=== PATIENT | female | born 1955 | race Caucasian/White ===

== ENCOUNTER 2016-09-10 20:04 | Inpatient (IN) ==
[2016-09-10 21:11] LABS: URINE MICRO REVIEW NEEDED? NO; URINE SOURCE CLEAN CATCH
[2016-09-10 21:11] LABS: MANUAL DIFF NEEDED? NO
[2016-09-10 21:17] LABS: BASO% 0.1 % (0.0-0.8); EOS# 0.06 X1000 (0.0-0.7); EOS% 0.8 % (0.0-10.0); HEMATOCRIT 48.2 % (37.0-47.0); HEMOGLOBIN 16.7 g/dL (12.0-16.0); LYMPH# 1.44 X1000 (1.2-3.4); LYMPH% 18.7 % (20.5-51.1); MCH 32.2 PG (27-31); MCHC 34.6 g/dL (33-37); MCV 93.1 FL (81-99); MONO# 0.47 X1000 (0.11-0.59); MONO% 6.1 % (1.7-9.3); MPV 10.6 FL (7.4-10.4); NEUT% 74.3 % (42.2-75.2); PLT 185 X1000 (130-400); RBC 5.18 XMIL (4.2-5.4)
[2016-09-10 21:17] LABS: BILIRUBIN URINE NEGATIVE (NEGATIVE); BLOOD URINE NEGATIVE (NEGATIVE); COLOR YELLOW; GLUCOSE URINE NEGATIVE (NEGATIVE); LEUKOCYTES URINE SMALL (NEGATIVE); NITRITE URINE NEGATIVE (NEGATIVE); PROTEIN URINE TRACE mg/dL (NEGATIVE); SP GRAVITY URINE 1.016; TURBIDITY URINE CLEAR (CLEAR); UR EPITHELIAL CELLS <10 /HPF (<10); URINE BACTERIA NEGATIVE /HPF; URINE CULTURE NEEDED? YES; URINE RBC <10 /HPF (<10); URINE WBC <10 /HPF (<10); UROBILINOGEN URINE NORMAL (NORMAL)
[2016-09-10 21:49] LABS: UR AMPHETAMINES QUAL NONE DETECTED (NONE DETECT); UR BARBITUATES QUAL NONE DETECTED (NONE DETECT); UR BENZODIAZEPIN QUAL NONE DETECTED (NONE DETECT); UR CANNABINOIDS QUAL NONE DETECTED (NONE DETECT); UR COCAINE QUAL NONE DETECTED (NONE DETECT); UR METHADONE QUAL NONE DETECTED (NONE DETECT); UR OPIATES QUAL NONE DETECTED (NONE DETECT); UR OXYCODONE QUAL NONE DETECTED (NONE DETECT); UR PCP QUAL NONE DETECTED (NONE DETECT)
[2016-09-10 21:50] LABS: AGAP 15; ALBUMIN 4.4 g/dL (3.5-5.0); ALKALINE PHOSPHATASE 85 U/L (32-104); BUN 10 mg/dL (8-22); CALCIUM 10.1 mg/dL (8.8-10.2); CHLORIDE 94 mmol/L (98-107); COSMO 269; GOT 22 U/L (10-30); GPT 12 U/L (10-36); POTASSIUM 3.9 mmol/L (3.5-5.1); SODIUM 135 mmol/L (136-145); TCO2 26 mmol/L (25-35); TOTAL BILIRUBIN 0.34 mg/dL (0.20-1.00); TOTAL PROTEIN 7.4 g/dL (6.3-8.3)
[2016-09-10] MEDS ORDERED: ATIVAN ONE (22:44)
[2016-09-10] MEDS ORDERED: STERILE WATER INJ. ONE (22:53)
[2016-09-10] MEDS ORDERED: GEODON ONE (22:53)
[2016-09-10] MEDS ORDERED: SODIUM CHLORIDE 0.9% 0 ML ONE (22:54)
[2016-09-10] MEDS ORDERED: KEPPRA 500 MG in NS 100 ML IV ONE (22:59)
[2016-09-10] MEDS ORDERED: ATIVAN IM ONE (22:59)
[2016-09-10] MEDS ORDERED: NS 1,000 ML IV ONE (23:14)
[2016-09-11 00:10] LABS: FREE T4 1.3 ng/dL (0.93-1.70)
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
[2016-09-11] MEDS ORDERED: ZOFRAN IV PRN (03:09)
[2016-09-11] MEDS ORDERED: ATIVAN IV PRN ×2 (03:09→12:52)
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
[2016-09-11] MEDS: NS 1,000 ML IV SCH ×4 (03:58→22:28)
--- NOTE | 2016-09-11 09:14 | Diag Imaging Result Doc PS360 ---
HEAD W/O CONTRAST - 09/10/2016 INDICATION: AMS TECHNIQUE: A CT dose reduction protocol was used. COMPARISON: 08/14/2015 FINDINGS: The ventricles and sulci are normal in size and contour. No intracranial mass or hemorrhage. The skull is intact. The sinuses mastoids and middle ears are clear. IMPRESSION: Negative exam. Electronically signed by Lyle Mcneil 09/11/2016 9:11 AM
[2016-09-11] MEDS: KEPPRA PO SCH (09:41)
[2016-09-11] MEDS: LOVENOX SUBQ SCH (09:42)
[2016-09-11] MEDS: ASPIRIN PO SCH (09:42)
[2016-09-11] MEDS ORDERED: CYMBALTA PO SCH ×2 (13:00→13:30)
[2016-09-11] MEDS: NICODERM PATCH TD SCH (16:04)
--- NOTE | 2016-09-11 19:05 | PROGRESS NOTE ---
DATE: 09/11/2016 SUBJECTIVE: A 60-year-old white female patient admitted with seizure episode. The patient did have seizure in the past. The patient was on Keppra, pain medication, and antidepressant. Patient claims she ran out of her medicine. The patient did not have appropriate explanation why. The patient received Ativan in the emergency room. When I evaluated the patient, the patient was sleeping but arousable. History part was limited. Claims to be under stress. She does not remember dose of Suboxone. She does have pain in her left leg. No fever or chills. No chest pain. Does have cough with scanty sputum production. OBJECTIVE: Vital Signs: Her vital signs reviewed. Lungs: Clear. Neck: Supple. No JVD. Lungs: Bilateral occasional wheezing. Cardiovascular: S1 and S2 heard. Abdomen: Soft, nontender. Bowel sounds present. DRILL SHARPENER: Alert, awake, able to move all 4 limbs. Uncooperative for detailed exam. Admission history and physical noted. LAB DATA: Reviewed. Electrolytes were fairly benign. I am going to add NicoDerm patch. Ativan for her anxiety. Advised her to get her home medications, seizure precautions. Resume her home medicine. cc: MD Ilan Lozano MD
[2016-09-11] MEDS: ATIVAN PO PRN (22:28)
[2016-09-11] MEDS: TYLENOL PO PRN (22:28)
[2016-09-12] MEDS: LOVENOX SUBQ SCH (05:26)
--- NOTE | 2016-09-12 06:05 | EKG Report ---
Test Performed on : 09/10/2016 8:14:03 PM Test Reason : poss. sz Blood Pressure : / mmHG Vent. Rate : 083 BPM Atrial Rate : 083 BPM P-R Int : 106 ms QRS Dur : 068 ms QT Int : 360 ms P-R-T Axes : 073 064 -35 degrees QTc Int : 423 ms Sinus rhythm. with short GA with premature supraventricular complexes. and with occasional premature ventricular complexes. Possible Left atrial enlargement Left ventricular hypertrophy Cannot rule out Septal infarct , age undetermined Abnormal ECG When compared with ECG of 14-AUG-2015 12:32, premature ventricular complexes. are now present premature supraventricular complexes. are now present ST now depressed in Inferior leads T wave inversion now evident in Inferior leads Unconfirmed Result
[2016-09-12 07:00] LABS: MANUAL DIFF NEEDED? NO
[2016-09-12 07:14] LABS: BASO% 0.5 % (0.0-0.8); EOS# 0.09 X1000 (0.0-0.7); EOS% 2.3 % (0.0-10.0); HEMATOCRIT 39.3 % (37.0-47.0); HEMOGLOBIN 13.2 g/dL (12.0-16.0); IMM GRAN# 0.04 X1000 (0.0-0.04); LYMPH# 1.94 X1000 (1.2-3.4); LYMPH% 48.6 % (20.5-51.1); MCH 32.1 PG (27-31); MCHC 33.6 g/dL (33-37); MCV 95.6 FL (81-99); MONO# 0.34 X1000 (0.11-0.59); MONO% 8.5 % (1.7-9.3); MPV 10.7 FL (7.4-10.4); NEUT% 39.1 % (42.2-75.2); PLT 111 X1000 (130-400); RBC 4.11 XMIL (4.2-5.4)
[2016-09-12 07:46] LABS: AGAP 9; BUN 9 mg/dL (8-22); CHLORIDE 110 mmol/L (98-107); COSMO 280; POTASSIUM 4.2 mmol/L (3.5-5.1); SODIUM 142 mmol/L (136-145); TCO2 23 mmol/L (25-35)
[2016-09-12 07:59] LABS: CALCIUM 7.9 mg/dL (8.8-10.2)
[2016-09-12] MEDS: CYMBALTA PO SCH (09:58)
[2016-09-12] MEDS: NICODERM PATCH TD SCH (09:59)
[2016-09-12] MEDS: ASPIRIN PO SCH (09:59)
[2016-09-12] MEDS: KEPPRA PO SCH (09:59)
[2016-09-12] MEDS: ATIVAN PO PRN ×2 (10:01→22:18)
[2016-09-12] MEDS: TYLENOL PO PRN (13:26)
--- NOTE | 2016-09-12 19:31 | PROGRESS NOTE ---
DATE: 09/12/2016 SUBJECTIVE: Interval history was reviewed. Patient was admitted on 09/11/2016 for seizure disorder, altered mental status. The patient was started on Keppra. She was also under Suboxone clinic for detox. Complains of left hip pain. REVIEW OF SYSTEMS: HEENT: No headache. No vision problem. No earache. No sore throat. Neck: No goiter. No lymphadenopathy. No bruit. Cardiopulmonary: No chest pain, shortness of breath, PND, orthopnea. GI: No nausea, vomiting, abdominal pain. Extremities: Chronic hip pain. Neurologic: No focal symptoms or weakness. Past medical history, past surgical history, and medicines are reviewed. OBJECTIVE: Vital signs: Afebrile, pulse is 79, respirations 18, blood pressure is 129/63, 98% saturation on room air. I's and O's are even. HEENT: Atraumatic, normocephalic. Pupils equal, react to light. Neck: Supple. No lymphadenopathy. Chest: Bilateral air entry. Cardiovascular: Heart sounds are regular. Abdomen: Belly is soft, nontender. Good bowel sounds. No masses palpable. Extremities: No peripheral edema, cyanosis. Neurologic: No obvious neurological deficits. INVESTIGATIONS: CBC: White cell count 3.9, hematocrit 39, platelets 111,000. SMA 7: Sodium 142, potassium 4.2, chloride 110, BUN 9, creatinine 0.7, glucose 71, calcium 7.9. CT head negative. ASSESSMENT AND PLAN: 1. Altered mental status due to seizure disorder. On Keppra 1000 daily and Ativan as needed. 2. Deep vein thrombosis prophylaxis with Lovenox. 3. Chronic depression and pain. On Cymbalta 60 daily. 4. Chronic obstructive pulmonary disease. On nebulizers. 5. Chronic tobacco abuse, nicotine abuse. 6. Chronic pain. On Suboxone Clinic. 7. Reconcile home medications. LEVEL OF DOCUMENTATION: 25 minutes. cc: Ilan Parks MD
[2016-09-12] MEDS: HYDROXYZINE PO SCH (21:13)
[2016-09-13] MEDS: LOVENOX SUBQ SCH (05:45)
[2016-09-13] MEDS: KEPPRA PO SCH (10:01)
[2016-09-13] MEDS: ASPIRIN PO SCH (10:01)
[2016-09-13] MEDS: NICODERM PATCH TD SCH (10:01)
[2016-09-13] MEDS: CYMBALTA PO SCH (10:02)
[2016-09-13] MEDS: CATAFLAM PO SCH ×3 (10:02→20:50)
[2016-09-13] MEDS: HYDROXYZINE PO SCH ×2 (10:02→20:50)
[2016-09-13] MEDS: ATIVAN PO PRN ×2 (10:05→20:50)
[2016-09-13] MEDS: ALBUTEROL NEB INH SCH ×3 (12:53→21:30)
[2016-09-13] MEDS: VENTOLIN HFA INH SCH (12:54)
--- NOTE | 2016-09-13 18:54 | PROGRESS NOTE ---
DATE: 09/13/2016 SUBJECTIVE: Patient is awake. No seizure activity. No complaints other than pain on the left hip. REVIEW OF SYSTEMS: None reported. PHYSICAL EXAMINATION: Afebrile. Pulse is 79 and respirations 20. Blood pressure is 120/55. On 3 L nasal cannula 98%.HEENT: Within normal limits. Neck: Supple. Chest: Clear. Heart: Sounds are regular. Abdomen: Belly is soft, nontender. Good bowel sounds. Neurologic: No obvious neurological deficits. INVESTIGATIONS: Keppra levels are less than 2.0. ASSESSMENT AND PLAN: 1. Seizure disorder, noncompliant, not taking the medications. 2. Chronic pain on Suboxone Clinic. 3. Tobacco abuse. Quit smoking. Nicotine cessation programs. 4. Continue on present therapy and also needs calcium and vitamin D. If she is stable will be discharged in the morning. LEVEL OF DOCUMENTATION: 15 minutes. cc: Ilan Parks MD
[2016-09-14] MEDS: ALBUTEROL NEB INH SCH ×3 (03:55→10:16)
[2016-09-14] MEDS: LOVENOX SUBQ SCH (06:19)
[2016-09-14] MEDS: VENTOLIN HFA INH SCH ×2 (06:20→10:16)
[2016-09-14 07:58] VITALS: BP 110/56
[2016-09-14] MEDS: ATIVAN PO PRN (09:17)
[2016-09-14] MEDS: CYMBALTA PO SCH (09:17)
[2016-09-14] MEDS: CATAFLAM PO SCH (09:17)
[2016-09-14] MEDS: ASPIRIN PO SCH (09:17)
[2016-09-14] MEDS: HYDROXYZINE PO SCH (09:17)
[2016-09-14] MEDS: KEPPRA PO SCH (09:18)
[2016-09-14] MEDS: NICODERM PATCH TD SCH (09:18)
--- NOTE | 2016-09-14 22:20 | DISCHARGE SUMMARY ---
ADMISSION DATE: 09/11/2016 DISCHARGE DATE: 09/14/2016 DISCHARGING DIAGNOSIS: Altered mental status due to seizure disorder. Subtherapeutic Keppra levels. SECONDARY DIAGNOSES: 1. Chronic chronic obstructive pulmonary disease, noncompliant. 2. Deafness in the left ear. 3. Hyperlipidemia. 4. Head's esophagus. 5. Osteoporosis, T-score -3.2. 6. Tobacco abuse. 7. Chronic anxiety and depression. 8. Chronic pain. 9. History of coronary artery disease. BRIEF HISTORY: Please see the H and P that was done by Dr. Botello. In brief, she is a 60-year- old white female, who was admitted to the hospital with a seizure, altered mental status. Patient was given IV fluids, IV Keppra. During this hospital course, after these medicines, she did not have any seizure. She is asking for chronic pain and anxiety pills. She is known for detox. She is noncompliant. LABORATORY STUDIES: CBC: White cell count 3.9, hematocrit 39, platelets 111,000. SMA-7: Sodium 142, potassium 4.2, chloride 110. BUN 9 creatinine 0.7. LFTs were normal. Urinalysis is clear. Urine toxic screen is negative. No alcohol was detected. PROCEDURES: CT head negative. PLAN OF CARE: At the time of discharge, as follows: 1. Advised the patient to quit smoking. 2. Chronic obstructive pulmonary disease. Continue on Symbicort and Proventil as needed. 3. History of seizures, on Keppra 500 p.o. b.i.d., and check the levels in 2 weeks. 4. Hyperlipidemia, on Zocor 40 daily. 5. Coronary artery disease, couple of stents, on aspirin, followed by Dr. Keating. 6. Chronic depression and pain. Cymbalta 60 daily. 7. Head's esophagitis, stable. 8. Chronic pain, going to the Suboxone clinic. 9. Osteoporosis, status post left hip fracture. Calcium with vitamin D, and IV Reclast. 10. History of substance abuse with marijuana. 11. Vaccinations: Influenza vaccine in 2014, pneumococcal in 2013, mammography 06/2016. 12. Follow up in my office in 10 days. cc: Ilan Parks MD
== END 2016-09-14 11:13 | disposition home or self-care (01) ==
LOC: ED 20:04 → SUATTDRO 09-11 02:04 → 3N 09-11 02:04
PROVIDERS: ADMIT Internal Medicine; ATTEND Internal Medicine

== ENCOUNTER 2018-10-24 10:29 | Inpatient (IN) ==
[2018-10-24 15:45] LABS: ALLEN TEST YES; BE -1.8 mmoll (-3.0-3.0); BLOOD TYPE ARTERIAL; HCO3-(ACT) 23.4 mmoll (20.0-26.0); METHB 1.2 % (0.0-1.5); O2(CT) 16.6 mL/dL (15.0-23.0); O2HB 90.8 % (95.0-99.0); PCO2(98.6) 39 mmHg (35-45); PO2(98.6) 73 mmHg (60-100); SAMPLE BLOOD; SAO2 96.2 % (95.0-100.0); pH(98.6) 7.38 (7.35-7.45)
[2018-10-24 15:46] LABS: MODALITY ROOM AIR
[2018-10-24 16:17] LABS: BASO# 0.01 X1000 (0.0-0.2); BASO% 0.2 % (0.0-0.8); EOS# 0.12 X1000 (0.0-0.7); EOS% 2.1 % (0.0-10.0); HEMATOCRIT 40.8 % (37.0-47.0); HEMOGLOBIN 13.4 g/dL (12.0-16.0); LYMPH# 2.12 X1000 (1.2-3.4); LYMPH% 37.5 % (20.5-51.1); MCH 31.2 PG (27-31); MCHC 32.8 g/dL (33-37); MCV 94.9 FL (81-99); MONO# 0.35 X1000 (0.11-0.59); MONO% 6.2 % (1.7-9.3); MPV 11.2 FL (7.4-10.4); NEUT# 3.06 X1000 (1.4-6.5); PLT 152 X1000 (130-400); RDW 13.5 % (11.5-14.5); WBC 5.66 X1000 (4.8-10.8)
[2018-10-24 16:44] LABS: CALCIUM 8.9 mg/dL (8.8-10.2); CREATININE 1.3 mg/dL (0.5-0.9); POTASSIUM 4.3 mmol/L (3.5-5.1)
[2018-10-24] MEDS: NORCO-7.5 PO PRN ×2 (17:44→21:55)
[2018-10-24] MEDS ORDERED: SYMBICORT 160/4.5 MICROGM INHALER INH PRN (18:11)
[2018-10-24] MEDS: NS 1,000 ML IV SCH (18:53)
[2018-10-24] MEDS: KEPPRA PO SCH (21:44)
[2018-10-24] MEDS: KLONOPIN PO SCH (21:44)
[2018-10-24] MEDS: LIPITOR PO SCH (21:45)
[2018-10-24] MEDS: ZYPREXA PO SCH (21:45)
[2018-10-24] MEDS: REMERON PO SCH (21:45)
--- NOTE | 2018-10-24 22:06 | HISTORY AND PHYSICAL ---
SUBJECTIVE: Incidental finding of left lower lobe mass; previously treated with left lower lobe pneumonia; underlying COPD. HISTORY OF PRESENT ILLNESS: She is a 62-year-old white female. Initially she was seen in my office last month for left lower lobe pneumonia. Followup x-ray showed interval improvement. In the meantime, she had a fall and sustained injury with a tibial plateau fracture. She has a immobilizer, under the care of Dr. Robledo. The patient has been referred with abdominal pain to Dr. Vail. Apparently Dr. Vail, details are not known, he did a CT scan of the abdomen and pelvis. The patient had hysterectomy, cholecystectomy, severe atherosclerosis, left lower lobe mass versus pneumonia. I did review the CTs, and the lower end of the lung windows on the upper part of the abdomen showed a lesion. The patient is not able to ambulate. Basically admitted to the hospital for evaluation of left lower lobe pneumonia and also possible tumor evaluation. Creatinine 1.3. Based on the CT, further recommendations will be followed. PAST MEDICAL HISTORY: Chronic anxiety; Head esophagus; COPD; coronary artery disease, with a stent in the circumflex and distal RCA; hypertension; hearing loss on the left side; hyperlipidemia; osteoporosis; insomnia; tobacco abuse; recent tibial plateau fracture. PAST SURGICAL HISTORY: Appendectomy, cholecystectomy, hysterectomy, left hip replacement, right cataract surgery, sinus surgery, 2 stents in the heart. MEDICATIONS: Duloxetine 60 mg daily; Keppra 1000 once daily; Zyprexa 5 mg daily; Klonopin 1 mg p.o. t.i.d.; Symbicort 160/4.5 b.i.d.; Nexium 40 mg daily; Remeron 30 mg daily; aspirin 81 mg daily; [place] 7.5 as needed; Lipitor 40 daily; Prilosec 40 daily; Effient 10 mg daily; metoprolol 25 daily. ALLERGIES: Reglan, morphine and penicillin. SOCIAL HISTORY: . Two children. Living in [place]. Smoking 1 pack a day for the last 43 years. No alcohol. No drug abuse. FAMILY HISTORY: Father at the age of 78 from bone cancer. Mother also of bone cancer. Details are not known. HEALTH MAINTENANCE: Flu vaccine 2017, pneumococcal 2013. Mammography 08/2018. DEXA scan 06/2016. EGD and colonoscopy in 11/[address] Vail. REVIEW OF SYSTEMS: HEENT: No headache, no vision problem. No earache. No sore throat. Cardiopulmonary: No chest pain. Recurrent pneumonia, was treated twice in the past 1 year, mostly in the right lung and the left lower lobe. Gastrointestinal: Upper abdominal pain, seen by Dr. Vail. No altered bowel habits. No bleeding per rectum. Genitourinary: No history of hesitancy, frequency or dysuria. Recently had a left tibial plateau fracture, in immobilizer with crutches. Seen by Dr. Robledo. No neurological symptoms or weakness. PHYSICAL EXAMINATION: VITAL SIGNS: Temperature is 98.3 degrees, pulse 67, blood pressure 121/59. HEENT: Atraumatic, normocephalic. Pupils equal and reactive to light. TMs are normal. Nose and throat within normal limits. NECK: Supple. No lymphadenopathy. CHEST: Bilateral air entry. Scattered wheezing. HEART: Distant heart sounds. ABDOMEN: Belly is soft, nontender. Good bowel sounds. No obvious neurological deficits. LABORATORY DATA: CBC: White cell count 5.6, hematocrit 40, platelets 152,000. ABG pH is 7.38, pCO2 is 39, pO2 is 73, bicarbonate 23, carboxyhemoglobin 4.5 on room air. Sodium 141, potassium 4.3, chloride 108, BUN 10, creatinine 1.3. CA level 5.9. DIAGNOSTIC DATA: CT scan of the chest is pending. Previous CT was done in 2017. No lesions identified except COPD. Chest x-ray in my office: No obvious masses identified. ASSESSMENT AND PLAN: A 62-year-old white female with tobacco abuse, with underlying medical problems; coronary artery disease; recent left knee fracture, on crutches, knee immobilizer; abnormal left lower lobe mass. Details are not known. Family is anxious to expedite the process. Not able to ambulate. As a result, admitted for observation. Follow up on CT of the chest. Intravenous fluids. Based on the CT, further recommendations will be followed. Reconcile home medications. cc: Ilan Parks MD MTDD
[2018-10-25] MEDS: NORCO-7.5 PO PRN ×3 (08:36→22:12)
[2018-10-25] MEDS ORDERED: EFFIENT PO SCH (09:00)
[2018-10-25] MEDS ORDERED: CYMBALTA PO SCH (09:00)
[2018-10-25] MEDS ORDERED: TOPROL XL PO SCH (09:00)
[2018-10-25] MEDS ORDERED: NEXIUM PO SCH (09:00)
[2018-10-25] MEDS: KLONOPIN PO SCH ×3 (09:26→22:08)
[2018-10-25] MEDS: NS 1,000 ML IV SCH ×2 (09:26→22:13)
--- NOTE | 2018-10-25 10:07 | Diag Imaging Result Doc PS360 ---
EXAM: CT THORAX W/CONTRAST INDICATION: copd left lower mass TECHNIQUE: This exam was performed using automated exposure control, adjustment of mA or kV according to patient size, and/or use of iterative reconstruction technique. COMPARISON: 02/16/2017 FINDINGS: There is mild to moderate centrilobular emphysema. There also appears to be pulmonary fibrosis with a basilar predominance bilaterally that is more extensive than the previous study. In the left lower lobe there is a spiculated mass measuring approximately 2.0 x 1.9 cm axially. Although it is possible that it represents focal fibrosis or an infectious process, it is suspicious for neoplasm given its morphology. There is no pleural fluid collection and no pneumothorax. There are small shotty mediastinal lymph nodes that are stable. No significant lymphadenopathy is appreciated. Limited views of the upper abdomen are essentially unremarkable. IMPRESSION: 1.Stable [id number] COPD. 2.Pulmonary fibrosis with a basilar predominance that appears worse than the previous study. 3.Spiculated mass in the left lower lobe near the base. Although this may represent worsening focal fibrosis, neoplasm cannot be excluded. Electronically signed by William Cruz 10/25/2018 10:05 AM
--- NOTE | 2018-10-25 21:05 | PROGRESS NOTE ---
DATE: 10/25/2018 SUBJECTIVE: Patient did not have a CAT scan yesterday due to contrast. Patient was getting IV fluids. Subsequently, did a CT of the chest in the morning. She does have spiculated mass in the left lower lobe, about 2 cm. These findings are new. She is a smoker with COPD. CEA level was high. REVIEW OF SYSTEMS: Otherwise none reported. PHYSICAL EXAMINATION: Vital Signs: Vitals are stable. HEENT: Within normal limits. Neck: Supple. No lymphadenopathy. Chest: Bilateral air entry. Heart: Sounds are regular. Abdomen: Belly is soft, nontender, with bowel sounds. Neurologic: No neurological deficits. ASSESSMENT AND PLAN: 1. Chronic obstructive pulmonary disease with recurrent pneumonia and new left lower lobe mass, spiculated. Patient is agreeable for a CT-guided biopsy in the morning. We will arrange. 2. Elevated CEA and smoking. 3. Left tibial plateau fracture, on crutches with immobilizer by Dr. Aleman. 4. Continue present treatment. 5. Coronary artery disease was stable. 6. Will follow up. cc: Ilan Parks MD
[2018-10-25] MEDS: KEPPRA PO SCH (22:07)
[2018-10-25] MEDS: LIPITOR PO SCH (22:08)
[2018-10-25] MEDS: ZYPREXA PO SCH (22:08)
[2018-10-25] MEDS: REMERON PO SCH (22:08)
[2018-10-26] MEDS: NORCO-7.5 PO PRN (03:31)
[2018-10-26 07:28] LABS: PROTIME 16.2 Seconds (11.0-16.0); PTT 42.7 Seconds (22.3-41.8)
[2018-10-26 07:29] LABS: INR 1.28
[2018-10-26 07:33] VITALS: BP 150/69
--- NOTE | 2018-10-29 11:38 | DISCHARGE SUMMARY ---
ADMISSION DATE: 10/24/2018 DISCHARGE DATE: 10/26/2018 DISCHARGING DIAGNOSIS: Left lower lobe mass spiculated, etiology to be determined. SECONDARY DIAGNOSES: 1. Chronic obstructive pulmonary disease. 2. Head's esophagitis. 3. Chronic anxiety. 4. Coronary artery disease with stents in the circumflex distal RCA. 5. Hypertension. 6. Hearing loss on the left side. 7. Hyperlipidemia. 8. Osteoporosis. 9. Tobacco abuse. 10. Left tibial plateau fracture. CONSULTS: Dr. Avila. BRIEF HISTORY: Please see the H and P that was done on 10/24/2018. In brief she is 62, white female was admitted to the hospital with shortness of breath, cough, wheezing, and treated several times with pneumonia in the left lower lobe and now incidentally, she had a left lower lobe mass spiculated. Recently seen by Dr. Vail, who did a GI workup for abdominal pain. CT scan of the abdomen and pelvis findings suspicious mass in the left lower lobe. It is not visible on the x- rays. The patient had recent left tibial plateau fracture, unable to walk. Currently on immobilizer with crutches. Family wants to be admitted to get a biopsy. Nevertheless, the patient has been on Effient and the radiologist wants to hold the Effient for [address]- guided biopsy. I am going to make the arrangements with the senior web architect since she had a drug coated stents in January of last year, whether it is safe to discontinue the medicine for 5 days prior to the biopsy. In the meantime, patient was seen by Dr. Avila who is going to arrange outpatient PET scan and based on that further recommendations will be followed. LABORATORIES: White cell count 5.6, hematocrit 40, platelets 152,000, PT 16, INR 1.2. ABG on room air pH is 7.38, pCO2 39, PO2 73, sodium 140, potassium 4.3, BUN 10, creatinine 1.3. CA level 5.9. Chest CT showed mild to moderate COPD, pulmonary fibrosis, spiculated mass in the left lower lobe. DISCHARGE INSTRUCTIONS: 1. Cymbalta 60 mg daily. 2. Keppra 1000 mg daily. 3. Zyprexa 5 mg at bedtime. 4. Klonopin 1 mg t.i.d. 5. Symbicort 160/4.5, one puff p.o. b.i.d. 6. Nexium 40 mg daily. 7. Remeron 30 mg at bedtime./ 8. Aspirin 81 mg daily. 9. Lipitor 40 daily. 10. Prilosec 40 daily. 11. Effient 10 daily. 12. Metoprolol 25 daily. 13. Follow up with Dr. Avila for outpatient PET scan. In the meantime, we will discuss with Dr. Keating about stopping the Effient prior to the CT-guided biopsy. I am going to coordinate with Dr. Keating and Dr. Avila for further arrangements. cc: MD Luis Watson MD Naveen T. Lobo, MD Manish Arora, MD
== END 2018-10-26 09:55 | disposition home health service (06) | DRG 204 ==
LOC: DIRADM 10:29 → 4N 13:43
PROVIDERS: ADMIT Internal Medicine; ATTEND Internal Medicine

== ENCOUNTER 2019-06-05 12:25 | Inpatient (IN) ==
[2019-06-05] MEDS ORDERED: DUONEB (A & A) INH ONE (12:40)
[2019-06-05] MEDS ORDERED: SODIUM CHLORIDE 0.9% INJ SCH (12:45)
[2019-06-05] MEDS: SOLU-MEDROL IV SCH ×2 (15:10→23:55)
[2019-06-05] MEDS: PROTONIX IV SCH (15:10)
[2019-06-05] MEDS: LEVAQUIN 500 MG/D5W 500 MG/100 ML IVPB IV SCH (15:10)
[2019-06-05] MEDS: NS 1,000 ML IV SCH (15:10)
[2019-06-05] MEDS: AZACTAM 1 GM in NS 50 ML IV SCH (16:49)
--- NOTE | 2019-06-05 21:51 | HISTORY AND PHYSICAL ---
CHIEF COMPLAINT: Shortness of breath, cough and wheezing, low-grade fever for the last 3 weeks. HISTORY OF PRESENT ILLNESS: She is a 63-year-old white female who has been under the treatment by Dr. Avila for lung cancer, had a chemo 2 weeks ago, having problems for the last 2 weeks. Patient was given 1 round of Levaquin and switched to the amoxicillin. She came to my office, and she continues to have cough and low-grade fever, shortness of breath, wheezing. She is markedly wheezing in my office. Pulse oximetry is about 92% on room air. Chest x-ray showed COPD changes with elevation of the left hemidiaphragm from the resection of the lung of left lower lobe. The patient was given the options of outpatient treatment, and she lives by herself since she is immunocompromised on chemotherapy admitted to the hospital for acute COPD exacerbation. 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 History of seizure disorder. PAST SURGICAL HISTORY: Left lower lobe lobectomy 01/10/2019 under the chemotherapy by Dr. Avila, appendectomy, cholecystectomy, hysterectomy, left hip fracture repair, right cataract surgery, TMJ surgery in 1982, sinus surgery, 2 cardiac stents. MEDICINES: 1. Duloxetine 60 daily. 2. Keppra 1000 at bedtime. 3. Symbicort 160/4.5 two puffs b.i.d. 4. Nexium 40 daily. 5. Aspirin 81 mg daily. 6. Lipitor 40 daily. Metoprolol 25 daily. 7. Trazodone 150 at bedtime. 8. BuSpar 10 daily. 9. Zoloft 50 mg daily. 10. Chemotherapy medications was treated with carboplatin and Abraxane. ALLERGIES: Metoclopramide, morphine, penicillin. SOCIAL HISTORY: She is . Two children. Now living in [place]. Smoking 1 pack a day off and on. No alcohol. No drug abuse currently and is disabled. FAMILY HISTORY: Father of bone cancer at 78. Mom of bone cancer at 70. Brother of lung cancer. HEALTH MAINTENANCE: Influenza vaccine December 2018, pneumococcal 2013, mammography August 2018, DEXA scan June 2016, colonoscopy, EGD by Dr. Vail November 2016. REVIEW OF SYSTEMS: HEENT: Hearing loss from the chemotherapy. Slight headache, sniffles, deafness in the left ear. Cataracts removed on the right side. Neck: No neck pain, no goiter, no lymphadenopathy. Cardiopulmonary: Cough, shortness of breath, wheezing. No chest pain, no PND, no orthopnea. GI: No nausea, vomiting, abdominal pain. : No history of hesitancy, frequency, dysuria. Extremities: No joint pain. Neurologic: No focal symptoms or weakness. PHYSICAL EXAMINATION: Temperature is 98.2 degrees, pulse 72, blood pressure is 138/72, 5 feet 6, 114 pounds. HEENT: Atraumatic, normocephalic. Hearing aid on the left side present. Cataracts removed on the right side. Nose and throat congested. NECK: Supple. No lymphadenopathy. CHEST: Bilateral wheezing. HEART: Sounds are regular. No murmur. ABDOMEN: Belly is soft, nontender. EXTREMITIES: No peripheral edema, cyanosis. NEUROLOGICAL: No obvious neurological deficits. INVESTIGATIONS: Chest x-ray in my office COPD changes. Recently patient did labs at Oncology. ASSESSMENT AND PLAN: 1. A 63-year-old white female with status post chemotherapy for non-small cell lung cancer left lower lobe, status post lobectomy followed by chemotherapy, not able to improve. Admitted to the hospital for acute chronic obstructive pulmonary disease exacerbation. Plan of care is oxygen as needed, Levaquin and aztreonam since she is allergic to penicillin. Continue IV steroids, bronchodilators. 2. IV hydration. 3. Follow up on the pending labs. 4. Coronary artery disease with 2 stents. Currently on aspirin, Lipitor, and metoprolol. 5. Reactive depression on Zoloft. 6. DVT, GI prophylaxis as per order sheet. 7. Reconcile home medication and initiate vaccination protocol prior to the discharge. 8. History of seizure disorder, probably withdrawals on Keppra. 9. Tobacco abuse. Continue to abstain from smoking. 10. Bilateral esophagitis under care of Dr. Vail. 11. Will follow up on the pending labs. cc: Ilan Parks MD
[2019-06-05] MEDS: DESYREL PO SCH (23:54)
[2019-06-05] MEDS: LOVENOX SUBQ SCH (23:55)
[2019-06-06] MEDS: AZACTAM 1 GM in NS 50 ML IV SCH ×4 (00:09→21:48)
[2019-06-06 04:50] LABS: HEMATOCRIT 32.9 % (37.0-47.0); HEMOGLOBIN 10.5 g/dL (12.0-16.0); LYMPH# 0.44 X1000 (1.2-3.4); LYMPH% 7.6 % (20.5-51.1); MCH 32.1 PG (27-31); MCHC 31.9 g/dL (33-37); MCV 100.6 FL (81-99); MONO# 0.03 X1000 (0.11-0.59); MONO% 0.5 % (1.7-9.3); MPV 10.1 FL (7.4-10.4); NEUT# 5.33 X1000 (1.4-6.5); NEUT% 91.9 % (42.2-75.2); PLT 169 X1000 (130-400); RBC 3.27 XMIL (4.2-5.4); RDW 16.7 % (11.5-14.5)
[2019-06-06 05:03] LABS: AGAP 10; ALBUMIN 2.8 g/dL (3.5-5.0); ALKALINE PHOSPHATASE 86 U/L (32-104); BUN 10 mg/dL (8-22); CALCIUM 8.5 mg/dL (8.8-10.2); CHLORIDE 104 mmol/L (98-107); COSMO 272; CREATININE 0.7 mg/dL (0.5-0.9); ESTIMATED GFR > 60; GLUCOSE 153 mg/dL (70-104); GOT 14 U/L (10-30); GPT 7 U/L (10-36); POTASSIUM 4.2 mmol/L (3.5-5.1); SODIUM 135 mmol/L (136-145); TCO2 21 mmol/L (25-35); TOTAL BILIRUBIN 0.15 mg/dL (0.20-1.00); TOTAL PROTEIN 5.5 g/dL (6.3-8.3)
[2019-06-06] MEDS: NS 1,000 ML IV SCH ×2 (05:25→19:05)
[2019-06-06] MEDS: SOLU-MEDROL IV SCH ×3 (05:25→21:54)
[2019-06-06 05:46] LABS: LYMPHS 9 % (21-51); SEGS 91 % (42-75)
[2019-06-06] MEDS ORDERED: NS 250 ML IV ONE (06:36)
[2019-06-06] MEDS ORDERED: NEXIUM PO SCH (09:00)
[2019-06-06] MEDS: CYMBALTA PO SCH (09:20)
[2019-06-06] MEDS: BUSPAR PO SCH (09:20)
[2019-06-06] MEDS: ZOLOFT PO SCH (09:20)
[2019-06-06] MEDS: ASPIRIN EC PO SCH (09:21)
[2019-06-06] MEDS: LIPITOR PO SCH (09:21)
[2019-06-06] MEDS: TOPROL XL PO SCH ×2 (09:21→09:26)
[2019-06-06] MEDS: SYMBICORT 160/4.5 MICROGM INHALER INH PRN (09:38)
[2019-06-06] MEDS: PROTONIX IV SCH (15:17)
[2019-06-06] MEDS: LEVAQUIN 500 MG/D5W 500 MG/100 ML IVPB IV SCH (15:17)
--- NOTE | 2019-06-06 21:07 | PROGRESS NOTE ---
DATE: 06/06/2019 SUBJECTIVE: Apparently lactate level was high in the morning. Blood pressure was low. Sepsis protocol was initiated. OBJECTIVE: On exam, the patient looks stable. Afebrile. Vital signs are stable. HEENT exam within normal limits. Neck is supple. Poor air entry and wheezing. Heart sounds are regular. Belly is soft, nontender. Good bowel sounds. No neurological deficits. LABORATORY DATA: White cell count 5.8, hematocrit 32.9, platelets 169,000. Sodium 135, potassium 4.2, chloride 104, BUN 10, creatinine 0.7, glucose 153, calcium 8.5. Plasma lactate 3.0. ASSESSMENT AND PLAN: 1. Acute chronic obstructive pulmonary disease exacerbation. 2. Dehydration. Continue intravenous fluids. Continue Azactam, Levaquin and intravenous steroids. 3. Coronary artery disease, status post stents. Continue present treatment with aspirin, beta- blockers. 4. History of seizures, on Keppra. 5. Reactive depression, on Zoloft. 6. BuSpar as needed for anxiety. 7. Deep venous thrombosis and gastrointestinal prophylaxis as per order sheet. 8. Will follow up. Level of documentation 25 minutes. cc: Ilan Parks MD
[2019-06-06] MEDS: KEPPRA XR PO SCH (21:54)
[2019-06-06] MEDS: LOVENOX SUBQ SCH (21:54)
[2019-06-06] MEDS: DESYREL PO SCH (21:54)
[2019-06-07] MEDS: NS 1,000 ML IV SCH ×2 (02:00→15:43)
[2019-06-07] MEDS: AZACTAM 1 GM in NS 50 ML IV SCH ×2 (06:32→15:41)
[2019-06-07] MEDS: SOLU-MEDROL IV SCH ×3 (06:32→21:20)
[2019-06-07] MEDS: ZOLOFT PO SCH (09:45)
[2019-06-07] MEDS: BUSPAR PO SCH (09:45)
[2019-06-07] MEDS: LIPITOR PO SCH (09:45)
[2019-06-07] MEDS: CYMBALTA PO SCH (09:45)
[2019-06-07] MEDS: ASPIRIN EC PO SCH (09:45)
[2019-06-07] MEDS: TOPROL XL PO SCH (09:46)
[2019-06-07] MEDS ORDERED: NS 500 ML ONE (13:35)
[2019-06-07] MEDS: LEVAQUIN 500 MG/D5W 500 MG/100 ML IVPB IV SCH (15:27)
[2019-06-07] MEDS: PROTONIX IV SCH (15:28)
--- NOTE | 2019-06-07 20:54 | PROGRESS NOTE ---
DATE: 06/07/2019 SUBJECTIVE: The patient is doing better and she has decreased shortness of breath, cough, and wheezing. PHYSICAL EXAMINATION: Vital Signs: Temperature is 98 degrees, pulse is 92. Vitals are stable. HEENT: Within normal limits. Neck: Supple, no lymphadenopathy. Chest: Bilateral air entry. Heart: Sounds are regular, belly is soft, nontender. Neurologic: No neurological deficits. INVESTIGATIONS: Plasma lactate 3.0. ASSESSMENT AND PLAN: 1. Acute chronic obstructive pulmonary disease exacerbation. Continue IV antibiotics, IV steroids. 2. Coronary artery disease (CAD), stable. 3. Discontinue fluids. 4. Deep vein thrombosis and gastrointestinal prophylaxis and will follow up. LEVEL OF DOCUMENTATION: 25 minutes. cc: Ilan Parks MD
[2019-06-07] MEDS: LOVENOX SUBQ SCH (21:19)
[2019-06-07] MEDS: DESYREL PO SCH (21:19)
[2019-06-07] MEDS: KEPPRA XR PO SCH (21:20)
[2019-06-08] MEDS: NS 1,000 ML IV SCH ×2 (04:06→05:04)
[2019-06-08] MEDS: AZACTAM 1 GM in NS 50 ML IV SCH ×3 (04:08→17:19)
[2019-06-08] MEDS: SOLU-MEDROL IV SCH ×3 (05:05→21:13)
[2019-06-08] MEDS: LIPITOR PO SCH (09:31)
[2019-06-08] MEDS: ZOLOFT PO SCH (09:31)
[2019-06-08] MEDS: CYMBALTA PO SCH (09:31)
[2019-06-08] MEDS: TOPROL XL PO SCH (09:32)
[2019-06-08] MEDS: BUSPAR PO SCH (09:32)
[2019-06-08] MEDS: ASPIRIN EC PO SCH (09:32)
[2019-06-08] MEDS: SYMBICORT 160/4.5 MICROGM INHALER INH PRN (09:37)
[2019-06-08] MEDS: PROTONIX IV SCH (17:20)
[2019-06-08] MEDS: LEVAQUIN 500 MG/D5W 500 MG/100 ML IVPB IV SCH (18:12)
--- NOTE | 2019-06-08 20:32 | PROGRESS NOTE ---
DATE: 06/08/2019 SUBJECT: The patient admits to feeling little better, stop the fluids, slightly edematous. EXAM: Temperature is 98 degrees, vitals are stable.HEENT: Within normal limits. Neck: Supple. Chest: Bilateral air entry. Heart: Sounds are regular. Belly is soft, nontender. No obvious deficits. ASSESSMENT AND PLAN: 1. Acute chronic obstructive pulmonary disease exacerbation. Continue on IV steroids, IV antibiotics with Azactam and Levaquin. 2. Status post left lower lobe lobectomy stable, discontinue fluids. Seizures on Keppra and coronary artery disease stable. Continue DVT, GI prophylaxis as per order sheet. If stable will discharge in the morning. LEVEL OF DOCUMENTATION: 25 minutes. cc: Ilan Parks MD
[2019-06-08] MEDS: LOVENOX SUBQ SCH (21:12)
[2019-06-08] MEDS: KEPPRA XR PO SCH (21:15)
[2019-06-08] MEDS: DESYREL PO SCH (21:15)
[2019-06-09] MEDS: AZACTAM 1 GM in NS 50 ML IV SCH (00:34)
[2019-06-09] MEDS: SOLU-MEDROL IV SCH (05:31)
[2019-06-09] MEDS: SYMBICORT 160/4.5 MICROGM INHALER INH PRN (09:33)
[2019-06-09] MEDS: LIPITOR PO SCH (10:42)
[2019-06-09] MEDS: BUSPAR PO SCH (10:42)
[2019-06-09] MEDS: ASPIRIN EC PO SCH (10:42)
[2019-06-09] MEDS: CYMBALTA PO SCH (10:42)
[2019-06-09] MEDS: TOPROL XL PO SCH (10:42)
[2019-06-09] MEDS: ZOLOFT PO SCH (10:42)
[2019-06-09] MEDS ORDERED: PREVNAR 13 IM ONE (13:34)
[2019-06-09 13:38] VITALS: BP 136/65
--- NOTE | 2019-06-09 17:23 | DISCHARGE SUMMARY ---
ADMISSION DATE: 06/05/2019 DISCHARGE DATE: 06/09/2019 DISCHARGING DIAGNOSIS: Acute chronic obstructive pulmonary disease exacerbation. SECONDARY DIAGNOSES: 1. Non-small cell left lung cancer status post left lower lobectomy. 2. Chronic anxiety. 3. Head's esophagitis. 4. Coronary artery disease with stents in the circumflex and RCA. 5. Hypertension. 6. Deafness on the left side. 7. Hyperlipidemia. 8. Osteoporosis. 9. Tobacco abuse. 10. History of seizure disorder. BRIEF HISTORY: Please see the H and P that was done on 06/05/2019. In brief, she is a 63-year- old white female who has been on chemotherapy for lung cancer by Dr. Avila. Came in with shortness of breath, low-grade fever, cough, and wheezing. Chest x-ray showed COPD changes. Given the risk factors and immunosuppressed on chemotherapy, patient decided to go to the hospital for aggressive IV antibiotics to prevent the sepsis. HOSPITAL COURSE: Lactate level was high. The patient's blood pressure was low. She was given IV fluids, followup resuscitation. Clinical picture is much improved, and the patient responded very well without any untoward side effects. LABS: White cell count 5.8, hematocrit 32.9, platelet count 169,000. Sodium 135, potassium 4.2, chloride 104, BUN 10, creatinine 0.7, glucose 153. Chest x-ray: COPD changes, elevation of left hemidiaphragm. At the time of discharge, patient is stable. DISCHARGE INSTRUCTIONS: 1. Pneumococcal vaccine 13 was given 06/07/2019. 2. Duloxetine 60 mg daily. 3. Keppra 1000 at bedtime. 4. Symbicort 160/4.5 one puff b.i.d. 5. Nexium 40 daily. 6. Aspirin 81 mg daily. 7. Lipitor 40 daily. 8. Metoprolol 25 daily. 9. Trazodone 150 at bedtime. 10. BuSpar 10 mg daily. 11. Zoloft 50 daily. 12. Levaquin 500 daily for 7 days. 13. Quit smoking. 14. Follow up in my office next week. 15. Will hold the chemotherapy for a while. 16. Follow up with Dr. Avila for lung cancer surveillance. cc: MD Joshua Watson MD
== END 2019-06-09 15:40 | disposition home health service (06) | DRG 191 ==
LOC: DIRADM 12:25 → EDIPHOLD 13:31 → 3N 17:33
PROVIDERS: ADMIT Internal Medicine; ATTEND Internal Medicine